=== PATIENT | female | born 1930 | race Caucasian/White ===

== ENCOUNTER 2017-10-14 18:36 | Emergency (ER) | payer MEDICARE ==
--- NOTE | 2017-10-14 21:13 | RAD ---
TWO VIEWS RIGHT HUMERUS: 10/14/17 HISTORY: Pain. COMPARISON: None. FINDINGS: There is mild bone demineralization. No fracture. No cortical irregularity or periosteal reaction. IMPRESSION: Unremarkable two views right humerus. POS: [facility]
== END 2017-10-14 21:35 | disposition home or self-care (01) ==
LOC: ERS 18:36
DX: M79.601 Pain in right arm (principal); I13.0 Hypertensive heart and chronic kidney disease with heart failure and stage 1 through stage 4 chronic kidney disease, or unspecified chronic kidney disease; N18.3 Chronic kidney disease, stage 3 (moderate); I50.9 Heart failure, unspecified

== ENCOUNTER 2017-10-31 23:12 | Inpatient (IN) | payer MEDICARE ==
[2017-11-01] MEDS ORDERED: Ondansetron HCl/PF 4 MG/2 ML Vial ONE ×2 (00:04→00:43)
[2017-11-01] MEDS ORDERED: hydrALAZINE 20 MG/ML VIAL ONE ×2 (00:43→04:15)
[2017-11-01 01:04] LABS: Hemoglobin 14.3 g/dL (12.0-16.0); Mean Corpuscular HGB CONC 33.5 g/dL (32.0-36.0); Mean Corpuscular Hemoglobin 32.7 pg (27.0-31.0); Mean Corpuscular Volume 97.5 fL (78.0-98.0); Mean Platelet Volume 6.4 fL (7.4-10.4); Platelet Count 242 thou/uL (130-400); RBC Distribution Width 13.7 % (11.5-14.5); Red Blood Cell (RBC) Count 4.37 mill/uL (4.20-5.40); White Blood Cell (WBC) Count 19.9 thou/uL (4.8-10.8)
[2017-11-01 01:07] LABS: INR-International Normal Ratio 3.8; PTT 43.6 SEC (22.9-36.1); Prothrombin Time 37.5 SEC (12.0-14.7)
[2017-11-01 01:16] LABS: ALT (SGPT) 23 U/L (8-55); AST (SGOT) 30 U/L (5-34); Albumin 4.3 g/dL (3.4-4.8); Alkaline Phosphatase 69 U/L (40-150); Anion Gap 12 mmol/L (10-20); BUN (Urea Nitrogen) 21 mg/dL (9.8-20.1); Bilirubin, Total 0.6 mg/dL (0.2-1.2); Calc. Creatinine Clearance 0 mL/min (70-130); Calcium 9.1 mg/dL (7.8-10.44); Carbon Dioxide 25 mmol/L (23-31); Chloride 95 mmol/L (98-107); Estimated GFR-MDRD 44; Globulin 1.9 g/dL (2.4-3.5); Glucose 109 mg/dL (83-110); Potassium 4.4 mmol/L (3.5-5.1); Protein, Total 6.2 g/dL (6.0-8.3); Sodium 128 mmol/L (136-145)
[2017-11-01 01:25] LABS: Lymphocytes 25 % (21-51); MDiff Complete? YES; Monocytes 4 % (0-10); Neutrophil 71 % (42-75); PLT Morphology Comment Appears Adequate; RBC Morphology Normal
[2017-11-01] MEDS ORDERED: Phytonadione 10 MG/ML AMP SLOW IVP SCH (02:15)
[2017-11-01 05:09] VITALS: BMI 22.7
[2017-11-01] MEDS ORDERED: HYDROcodone/Acetaminophen 5/325 mg Tablet PO PRN ×2 (05:12)
[2017-11-01] MEDS ORDERED: Ondansetron HCl/PF 4 MG/2 ML Vial IVP PRN ×2 (05:12→07:37)
[2017-11-01] MEDS ORDERED: Acetaminophen 325 MG TAB PO PRN (05:12)
[2017-11-01] MEDS ORDERED: Ondansetron ODT 4 MG TAB SL PRN (05:12)
[2017-11-01] MEDS ORDERED: Dextrose 50% Abboject 50 ML SYRINGE SLOW IVP PRN (07:37)
[2017-11-01] MEDS ORDERED: Dextrose 5% in Water 1,000 ML IV PRN (07:37)
[2017-11-01] MEDS ORDERED: Ondansetron ODT 4 MG TAB PO PRN (07:37)
[2017-11-01] MEDS ORDERED: Sodium Chloride 0.9% 1,000 ML IV SCH ×2 (07:37→10:45)
--- NOTE | 2017-11-01 08:50 | RAD ---
PORTABLE RIGHT KNEE 2 VIEWS: HISTORY: Fall, right knee pain. FINDINGS: Degenerative changes are present. Bones are osteopenic. No acute fracture or dislocation is identif ied. POS: [facility]
--- NOTE | 2017-11-01 09:39 | RAD ---
RIGHT HIP 2 VIEWS: HISTORY: Fall, right hip pain. FINDINGS: There is a subcapital fracture involving the neck of the right femur with foreshortening. POS: [facility]
--- NOTE | 2017-11-01 09:58 | RAD ---
PORTABLE CHEST 1 VIEW: DATE: 10/31/17. TIME: 11:21 p.m. HISTORY: Fall, right hip fracture. FINDINGS: Comparison is made with the exam of 10/14/16. The heart size is enlarged. The aorta is tortuous. There is a left-side pacing device. The lungs a re well expanded without lobar consolidation, pneumothoraces, guerline pulmonary edema, or pleural effus ions. IMPRESSION: No acute process. POS: [facility]
[2017-11-01] MEDS: Famotidine 20 MG TAB PO SCH (10:04)
--- NOTE | 2017-11-01 10:41 | RAD ---
RIGHT HAND 2 VIEWS: HISTORY: Fall, right hand laceration and pain. FINDINGS: Bones are osteopenic. Degenerative changes are present. No acute fracture or dislocation is identif ied. No radiopaque foreign bodies are seen. POS: [facility]
[2017-11-01] MEDS: hydrALAZINE 20 MG/ML VIAL SLOW IVP PRN ×2 (10:44→21:05)
--- NOTE | 2017-11-01 11:42 | HP ---
DATE OF ADMISSION: 11/01/2017 HISTORY OF PRESENT ILLNESS: She is an 87-year-old woman who is in poor physical condition who fell i n the bathroom, suffering a fracture of her right femoral neck. Family tells me she really has stopp ed walking in recent weeks and walks essentially none without help of a walker or another person. PHYSICAL EXAMINATION: EXTREMITIES: She has a shortened external rotation of her right leg. She has intact DP and PT pulse s. She has intact sensation in her foot. She has severe pain with any manipulation of the right hip . Skin is intact over the right hip. Radiographs, which are confusing because they can only be viewed in Radiology at this time. For some reason, the image is not loading on [facility] throughout the hospital, but radiographs viewed in the [facility] department showed that she has a completely displaced femoral neck fracture with shortening. LABORATORY DATA: Significant for an INR of 3.8. ASSESSMENT: Femoral neck fracture on a fully anticoagulated patient who is essentially a nonambulato r. PLAN: Plan at this time is as follows. I asked the ER to give her vitamin K last night. We will or liliana PT/INR in the morning. This should give her 24 hours for reversal. I have explained to the cristina ly that surgery could not be performed until trauma team has cleared her medically and INR is reverse d down to at least 1.7.
[2017-11-01 12:31] LABS: Hemoglobin 15.3 g/dL (12.0-16.0); INR-International Normal Ratio 1.4; Mean Corpuscular HGB CONC 34.2 g/dL (32.0-36.0); Mean Corpuscular Hemoglobin 33.1 pg (27.0-31.0); Mean Corpuscular Volume 96.8 fL (78.0-98.0); Mean Platelet Volume 6.4 fL (7.4-10.4); PTT 30.5 SEC (22.9-36.1); Platelet Count 253 thou/uL (130-400); Prothrombin Time 16.8 SEC (12.0-14.7); RBC Distribution Width 13.8 % (11.5-14.5); Red Blood Cell (RBC) Count 4.61 mill/uL (4.20-5.40); White Blood Cell (WBC) Count 22.7 thou/uL (4.8-10.8)
[2017-11-01] MEDS: Acetaminophen 1,000 MG in Premix Bag 1 BAG IVPB SCH ×2 (12:35→18:06)
[2017-11-01 13:03] LABS: Lymphocytes 21 % (21-51); MDiff Complete? YES; Monocytes 2 % (0-10); Neutrophil 56 % (42-75); PLT Morphology Comment Appears Adequate; Polychromasia SLIGHT = 2-3 cells (100X) (0-2/hpf); Reactive Lymphocytes 19 % (0-10)
--- NOTE | 2017-11-01 14:52 | HP ---
DATE OF ADMISSION: 11/01/2017 REQUESTING PHYSICIAN: Dr. Bernabe. ATTENDING SURGEON: Dr. Gardiner. CONSULTATIONS: Orthopedics, Dr. Manning. HISTORY OF PRESENT ILLNESS: The patient is an 87-year-old woman, who was reportedly attemp ting to use the bathroom at the assisted when she fell. The patient was brought by chio brice to the emergency department where she underwent evaluation and examination and was noted to have a right hip fracture, at which time we were asked to evaluate the patient for admission and obtain or thopedic consultation. Of note, the patient is on warfarin for atrial fibrillation. Patient also potter s significant Alzheimer's dementia and is a very poor historian. Her elderly is also here, w ho attempts to provide most of the history, but the fall at the assisted is unclear at best. ALLERGIES: The patient has multiple allergies listed, we cannot confirm what reaction she has. The medications are listed as ASPIRIN, CEPHALEXIN, ERYTHROMYCIN, HYDROXYCHLOROQUINE SULFATE, MOEXIPRIL, P ENICILLIN, PLAQUENIL, SULFA, TETANUS. CURRENT MEDICATIONS: Acetaminophen, calcium with vitamin D, Claritin, clonidine, Coreg, Coumadin, gu aifenesin, Imodium, Integra, isosorbide mononitrate, Lasix, losartan, Lyrica, melatonin, milk of magn esia, nitroglycerin, prednisolone, senna, sertraline, spironolactone, Tessalon, Theragran M, tramadol , Tums, Tylenol with Codeine #4, Valium, Voltaren, and Zofran. PAST MEDICAL HISTORY: TIA; chronic kidney disease, stage 3; hypertension; CLL; giant cell arteritis. 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 PAST SURGICAL HISTORY: Left hip replacement, colon resection, right eye surgery x7, pacemaker placem ent. SOCIAL HISTORY: The patient currently resides in [facility]. Denies history of alcohol, castillo g, or tobacco use. FAMILY HISTORY: Unknown. REVIEW OF SYSTEMS: Ten-point review of systems is negative, unless otherwise as stated. PHYSICAL EXAMINATION: VITAL SIGNS: Blood pressure 155/92, heart rate 80, respirations 12, oxygen saturation 96% on room ai r, temperature is 98.6. GENERAL: The patient is resting comfortably in a surgical floor bed. She is awake. She is oriented to person only. Her at bedside says this is her baseline. The patient is somewhat able to be oriented to time and location, but does not have good recall at all. The patient will follow simp le commands and is appropriate. HEENT: Head is normocephalic. Eyes are PERRLA on the left consistent with her blindness history on the right. Ears are atraumatic without discharge. Nose atraumatic with discharge. Oropharynx is cl ear. NECK: Nontender. Trachea is midline. No JVD. CHEST: Clear to auscultation with moderate inspiratory and expiratory effort secondary to patient fo llowing commands. HEART: Irregularly irregular with a normal rate consistent with her atrial fibrillation. ABDOMEN: Soft, flat, nontender. Pelvis is stable. MUSCULOSKELETAL: The patient is tender to palpation to the right hip. Shows some angulation holding her hip. She is neurovascularly intact distally and in all 4 extremities by report. Back is nonten liliana and atraumatic. LABORATORY FINDINGS: White blood cell count 19.9, hemoglobin 14.3, hematocrit 42.6, platelets 242. Sodium 128, potassium 4.4, chloride 95, CO2 of 25, BUN 21, creatinine 1.16, glucose 109. LFTs are un remarkable. PTT 44. PT 38. INR 3.8. RADIOGRAPHIC FINDINGS: AP chest shows no acute process. Right knee shows no fracture or dislocation . Right hip shows there is a subcapital fracture involving the neck of the right femur with shorteni ng. Radiographs of the right hand show no fracture or dislocation. ASSESSMENT AND PLAN: 1. Status post fall. 2. Warfarin-induced coagulopathy. 3. Right femoral neck fracture. 4. Multiple comorbidities. Plan will be to admit the patient to the surgical floor after consultation with Orthopedics. We will administer vitamin K to reverse the warfarin. Repeat coags later today and make patient n.p.o. afte r midnight and plan for surgical intervention tomorrow. The evaluation, examination, laboratory and radiographic findings were discussed with Dr. Gardiner at the time of dictation.
[2017-11-01] MEDS ORDERED: Clindamycin/D5W 900 MG in Premix Bag 1 BAG IVPB SCH (17:30)
[2017-11-01] MEDS: Carvedilol 3.125 MG TAB PO SCH (18:06)
[2017-11-01 19:37] LABS: CKMB 3.5 ng/mL (0-6.6)
[2017-11-01] MEDS: Diazepam 2 MG TAB PO SCH (20:51)
[2017-11-01] MEDS: Pregabalin 25 MG CAP PO SCH (20:52)
[2017-11-01] MEDS: Losartan 25 MG TAB PO SCH (20:52)
[2017-11-01] MEDS ORDERED: Phytonadione 10 MG/ML AMP PO SCH (21:00)
[2017-11-02] MEDS: Acetaminophen 1,000 MG in Premix Bag 1 BAG IVPB SCH ×3 (01:21→12:25)
[2017-11-02 01:31] LABS: CKMB 3.4 ng/mL (0-6.6); Troponin I 0.046 ng/mL (< 0.028)
[2017-11-02 01:32] LABS: Band 3 % (5-11); Hemoglobin 14.5 g/dL (12.0-16.0); Lymphocytes 34 % (21-51); MDiff Complete? YES; Mean Corpuscular HGB CONC 33.1 g/dL (32.0-36.0); Mean Corpuscular Hemoglobin 32.5 pg (27.0-31.0); Mean Corpuscular Volume 98.2 fL (78.0-98.0); Mean Platelet Volume 6.9 fL (7.4-10.4); Monocytes 2 % (0-10); Neutrophil 61 % (42-75); PLT Morphology Comment Appears Adequate; Platelet Count 201 thou/uL (130-400); RBC Distribution Width 13.8 % (11.5-14.5); Red Blood Cell (RBC) Count 4.47 mill/uL (4.20-5.40); White Blood Cell (WBC) Count 20.4 thou/uL (4.8-10.8)
[2017-11-02 01:57] LABS: Anion Gap 15 mmol/L (10-20); BUN (Urea Nitrogen) 16 mg/dL (9.8-20.1); Calc. Creatinine Clearance 45 mL/min (70-130); Calcium 8.8 mg/dL (7.8-10.44); Carbon Dioxide 22 mmol/L (23-31); Chloride 97 mmol/L (98-107); Estimated GFR-MDRD 64; Glucose 98 mg/dL (83-110); Potassium 3.8 mmol/L (3.5-5.1); Sodium 130 mmol/L (136-145)
[2017-11-02] MEDS: hydrALAZINE 20 MG/ML VIAL SLOW IVP PRN ×2 (03:44→16:17)
[2017-11-02] MEDS: Carvedilol 3.125 MG TAB PO SCH ×2 (05:23→16:18)
[2017-11-02 07:34] LABS: Troponin I 0.039 ng/mL (< 0.028)
[2017-11-02 07:47] LABS: INR-International Normal Ratio 1.3; PTT 33.9 SEC (22.9-36.1)
[2017-11-02] MEDS: cloNIDine 0.1 MG TAB PO SCH (08:02)
[2017-11-02] MEDS: Famotidine 20 MG TAB PO SCH (08:03)
[2017-11-02] MEDS: Furosemide 20 MG TAB PO SCH (08:03)
[2017-11-02] MEDS: Losartan 25 MG TAB PO SCH ×2 (08:04→21:20)
[2017-11-02] MEDS: Pregabalin 25 MG CAP PO SCH ×2 (08:04→21:20)
[2017-11-02] MEDS: predniSONE 5 MG TAB PO SCH (08:04)
[2017-11-02] MEDS ORDERED: traMADol HCl 50 MG TAB PO PRN (09:23)
[2017-11-02] MEDS ORDERED: Clindamycin/D5W 900 mg/50 ml Premix Bag ONE (10:48)
[2017-11-02] MEDS ORDERED: Fentanyl 100 MCG/2 ML VIAL ONE ×2 (11:03→13:31)
[2017-11-02] MEDS ORDERED: PHENYLEPHRINE-NS 100 MCG/ML 10 ML SYRINGE ONE ×2 (11:40→12:07)
[2017-11-02] MEDS ORDERED: PROPOFOL 200 MG/20 ML VIAL ONE (12:07)
[2017-11-02] MEDS ORDERED: Succinylcholine Chloride 20 MG/ML 10 ml SYRINGE FS ONE (12:07)
[2017-11-02] MEDS ORDERED: Lidocaine 1% PF 5 ML VIAL ONE (12:07)
[2017-11-02] MEDS ORDERED: Ondansetron HCl/PF 4 MG/2 ML Vial ONE (12:07)
[2017-11-02] MEDS ORDERED: Promethazine HCl 25 MG/ML VIAL IM PRN (12:53)
[2017-11-02] MEDS ORDERED: Ondansetron HCl/PF 4 MG/2 ML Vial IVP PRN (12:53)
[2017-11-02] MEDS ORDERED: Promethazine HCl 25 MG/ML VIAL SLOW IVP PRN (12:53)
--- NOTE | 2017-11-02 13:32 | OP ---
DATE OF PROCEDURE: 11/02/2017 PREOPERATIVE DIAGNOSIS: Right femoral neck fracture. POSTOPERATIVE DIAGNOSIS: Right femoral neck fracture. SURGEON: Shane Manning M.D. HARNESS PULLER: Patricia Meza PA-C BLOOD LOSS: 200 mL. SPECIMEN: None. DRAINS: None. COMPLICATIONS: None. IMPLANTS: Meliton implants were used, Accolade hip fracture stem size 4.5, -4 neck and a 47 mm head. PROCEDURE IN DETAIL: After informed consent was obtained in the preoperative holding area, the patie nt was taken to the operative suite where general anesthesia was induced. The patient was then posit ioned in the lateral decubitus position. The hip was then prepped and draped in usual sterile fashio n. The patient received preoperative antibiotics. Prior to incision, time-out was called and all me mbers of the surgical team agreed upon site, surgeon, and patient. After this, a longitudinal incisi on was made directly over the trochanter, noted by palpation extending 2 fingerbreadths above and bel ow the trochanter. The deeper subcutaneous layer was undermined with Bovie electrocautery. The ilio tibial band was encountered and incised sharply and the plane below this was developed bluntly. A arnley retractor was placed to hold this opened. The lateral aspect of the trochanter and the abduct or muscles were encountered and then reflected anteriorly off the trochanter using Bovie electrocaute ry. Once this was completed, the anterior capsule was then encountered and identified and copious ca psulotomy was carried out, exposing the femoral neck and head. Dislocation maneuver was then performe d and an in situ provisional neck cut was then made using the oscillating saw. Attention was then tu rned to acetabular preparation and sequential reaming was carried out up to the appropriate diameter and a trial was then malleted into place with good firm resistance and no pullout. The permanent pal tabular shell was then malleted squarely into place, as was the appropriate liner. Once completed, t he wound was copiously irrigated and attention was then turned to femoral preparation. Flexion and ex ternal rotation was performed of the exposed thigh and femoral elevators were then placed at the prox imal aspect of the wound. Canal finder was used to establish the length of the canal and sequential reaming was carried out, followed by broaching. Once the appropriate stability was established with the trial broaches with both flexion, extension and rotational stability, we did trial with neutral a nd 2 mm offset incremental necks. Once the appropriate size was decided upon, with good stability no dario with flexion, extension, internal and external rotation and shuck being negative, we removed the femoral trial broach and malletted into place the permanent prosthesis with good firm fit, which was also stable to rotation. Again, the hip felt very stable to flexion, extension, internal and externa l rotation. Leg lengths appeared near anatomic clinically and we were quite happy with prosthesis pl acement. Copious irrigation was then carried out through the entirety of the wound. Primary closure of the abductors was accomplished with interrupted #2 Vicryl [id number] stitches and the IT ban d was then closed with interrupted #2 Vicryl, oversewn with a #2 running barbed Quill stitch. Subcut aneous fascia was closed with running barbed Quill stitch and a subcuticular Monocryl barbed Quill st itch was used for skin closure and augmented with skin cement. A sterile dressing was applied. The p rocedure was terminated without any complication. All counts were correct. The patient was awakened in the operative suite and taken to the recovery room in stable condition.
--- NOTE | 2017-11-02 15:27 | RAD ---
RADIOGRAPH RIGHT HIP TWO VIEWS: 11/02/2017 1:29 p.m. HISTORY: An 87-year-old female, status post surgery and right hip fracture. COMPARISON: 10/31/2017 FINDINGS: The femoral head and neck have been resected and replaced with a metallic prosthesis, with a stem aline t reaches the proximal femoral diaphysis. Positioning is satisfactory. IMPRESSION: Status post right hip replacement arthroplasty. POS: [facility]
--- NOTE | 2017-11-02 15:28 | PRG-2 ---
DATE OF SERVICE: 11/02/2017 SUBJECTIVE: The patient is resting well in bed this morning, sleepy. No events overnight. Pain has been controlled. The patient is awaiting surgery this morning. OBJECTIVE: VITAL SIGNS: Temperature 98.4, 81, 16, 97% on room air, blood pressure 182/84. GENERAL: An 87-year-old female, resting comfortably in bed, sleeping. HEENT: Normocephalic, atraumatic. CHEST: Clear to auscultation, no increased work of breathing. HEART: Regular rate and rhythm, no murmur. ABDOMEN: Soft, nontender, nondistended. MUSCULOSKELETAL: Right hip tenderness. Neurovascularly intact in all extremities. LABORATORY DATA: White blood cell 20.4, hemoglobin 14.5, hematocrit 43.9, platelets 201. PT 16, INR 1.3, PTT 33.9. Sodium 130, potassium 3.8, chloride 97, carbon dioxide 22, BUN 16, creatinine 0.84. Troponins were 0.07, 0.046, 0.039. CK-MB 3.5, 3.4, 3.0. ASSESSMENT: 1. Status post fall. 2. Right femoral neck fracture. 3. Warfarin induced coagulopathy with history of atrial fibrillation. 4. Acute kidney injury, resolved. PLAN: Plan for orthopedic surgery today on right hip. We will evaluate for adequate pain control postop. Considering elevated blood pressure we will continue all home medications and we will continue to monitor. Tomorrow will restart anticoagulation with warfarin and heparin bridge. The patient was seen and examined with Dr. Gardiner who is in agreement with the plan as noted above. [facility]
[2017-11-02] MEDS ORDERED: HYDROcodone/Acetaminophen 5/325 mg Tablet PO PRN (18:28)
[2017-11-02] MEDS: Clindamycin/D5W 900 MG in Premix Bag 1 BAG IVPB SCH (18:29)
[2017-11-02] MEDS: Ibuprofen 800 MG TAB PO SCH (18:51)
[2017-11-02] MEDS: Acetaminophen 500 MG TAB PO SCH ×2 (18:52→21:21)
[2017-11-02] MEDS: Diazepam 2 MG TAB PO SCH (21:20)
[2017-11-03] MEDS: Ibuprofen 800 MG TAB PO SCH (01:44)
[2017-11-03] MEDS: Acetaminophen 325 MG TAB PO SCH ×5 (01:44→21:17)
[2017-11-03] MEDS: Clindamycin/D5W 900 MG in Premix Bag 1 BAG IVPB SCH (01:45)
[2017-11-03] MEDS: hydrALAZINE 20 MG/ML VIAL SLOW IVP PRN (01:45)
[2017-11-03 06:32] LABS: #Basophils 0.1 thou/uL (0.0-0.2); #Eosinphils 0.1 thou/uL (0.0-0.7); #Lymphocytes 5.5 thou/uL (1.20-3.40); #Monocytes 0.7 thou/uL (0.11-0.59); #Neutrophils 10.6 thou/uL (1.40-6.50); %Basophils 0.8 % (0.0-1.0); %Eosinophils 0.3 % (0.0-10.0); %Lymphocytes 32.5 % (21.0-51.0); %Monocytes 4.1 % (0.0-10.0); %Neutrophils 62.3 % (42.0-75.0); Hemoglobin 13.5 g/dL (12.0-16.0); Mean Corpuscular HGB CONC 32.7 g/dL (32.0-36.0); Mean Corpuscular Hemoglobin 32.3 pg (27.0-31.0); Mean Corpuscular Volume 98.9 fL (78.0-98.0); Platelet Count 196 thou/uL (130-400); Red Blood Cell (RBC) Count 4.17 mill/uL (4.20-5.40); White Blood Cell (WBC) Count 17.1 thou/uL (4.8-10.8)
[2017-11-03 06:38] LABS: Anion Gap 13 mmol/L (10-20); BUN (Urea Nitrogen) 28 mg/dL (9.8-20.1); Calc. Creatinine Clearance 27 mL/min (70-130); Calcium 8.4 mg/dL (7.8-10.44); Carbon Dioxide 23 mmol/L (23-31); Chloride 97 mmol/L (98-107); Estimated GFR-MDRD 36; Glucose 108 mg/dL (83-110); Magnesium 1.9 mg/dL (1.6-2.6); Phosphorus 3.5 mg/dL (2.3-4.7); Potassium 4.3 mmol/L (3.5-5.1); Sodium 129 mmol/L (136-145)
--- NOTE | 2017-11-03 06:47 | EKG ---
Test Reason : STAT Blood Pressure : / mmHG Vent. Rate : 080 BPM Atrial Rate : 079 BPM P-R Int : 000 ms QRS Dur : 116 ms QT Int : 334 ms P-R-T Axes : -27 177 125 degrees QTc Int : 385 ms Ventricular-paced rhythm Abnormal ECG When compared with ECG of 16-OCT-2016 08:16, No significant change was found Confirmed by LEONARDO CAMACHO ([id number]) on 11/03/2017 6:46:09 AM Referred By: Confirmed By:LEONARDO CAMACHO
[2017-11-03] MEDS: Losartan 25 MG TAB PO SCH (08:37)
[2017-11-03] MEDS: Furosemide 20 MG TAB PO SCH (08:37)
[2017-11-03] MEDS: predniSONE 5 MG TAB PO SCH (08:37)
[2017-11-03] MEDS: Famotidine 20 MG TAB PO SCH (08:37)
[2017-11-03] MEDS: Carvedilol 3.125 MG TAB PO SCH ×2 (08:37→18:37)
[2017-11-03] MEDS: cloNIDine 0.1 MG TAB PO SCH (08:38)
[2017-11-03] MEDS: Spironolactone 25 MG TAB PO SCH (08:58)
[2017-11-03] MEDS: Pregabalin 25 MG CAP PO SCH ×2 (08:58→21:15)
[2017-11-03] MEDS ORDERED: Refresh (Polyvinyl Alcohol 1.4%/Povidone 0.6%) Opth Drops EA EYE PRN (09:59)
[2017-11-03] MEDS ORDERED: Sodium Chloride 0.9% 500 ML IV SCH (11:30)
[2017-11-03] MEDS ORDERED: Hydrocortisone Sod Succ/PF 100 mg/2 ml Vial IVP SCH ×2 (13:00)
[2017-11-03] MEDS: Sodium Chloride 0.9% 1,000 ML IV SCH (15:30)
--- NOTE | 2017-11-03 15:38 | PRG-2 ---
DATE OF SERVICE: 11/03/2017 TRAUMA SURGERY NOTE SUBJECTIVE: The patient is an 87-year-old female postop day #1 status post right hip arthroplasty. No acute events overnight. The patient denies pain and says that has been well controlled. She requests eyedrops for her dry eyes. Family reports that she has been sleepy. OBJECTIVE: VITAL SIGNS: Temperature 97.3, pulse 79, respirations 16, O2 sat 93% on room air, blood pressure 161/76. PHYSICAL EXAM: General: well developed female resting in bed HEENT: normocephalic, atraumatic Lungs: CTAB, no increased work of breathing Heart: RRR, no murmur Extremities: Bandage over right hip clean dry and intact. Neurovascularly intact x4. LABORATORY DATA: White blood cells 17.1, hemoglobin 13.5, hematocrit 41.2, platelets 196,000. Sodium 129, potassium 4.3, chloride 97, carbon dioxide 23, BUN 28, creatinine 1.4, glucose 108, phosphorus 3.5, magnesium 1.9. ASSESSMENT: 1. Status post fall with right femoral neck fracture. 2. Postop day #1 status post right hip arthroplasty. 3. Warfarin-induced coagulopathy, resolved. 4. History of atrial fibrillation. 5. Acute kidney injury. PLAN: The patient will be restarted on her home dose of warfarin with a heparin bridge today. Refresh eye drops were ordered. Continue bowel regimen and Cristina. We will plan to discontinue Cristina tomorrow pending improvement of her acute kidney injury. The patient's creatinine was 1.4 today. Nephrotoxic medications were discontinued. Considering inadequate urine output over the past 24 hours, the patient was given a 500 mL bolus. We will continue to monitor I's and O's. Wound care consulted for rash on her left bottom, which family says is due to being in bed. Hyponatremia is stable. After rounds, we were called due to family's concern with the patient's sleepiness level. Nursing reported hypotension with systolic in the 80s, diastolic 50s. Considering the patient's chronic prednisone 5 mg daily use with concern for adrenal insufficiency, the patient was given hydrocortisone. The patient was also given albumin. We will continue to monitor the patient's blood pressure, urine output and mental status. Dr. Gardiner saw and examined the patient and formulated the plan as noted above. [facility]
[2017-11-03] MEDS ORDERED: Warfarin Sodium 5 MG TAB PO SCH (17:00)
[2017-11-03] MEDS: Hydrocortisone Sod Succ/PF 100 mg/2 ml Vial IVP SCH (18:38)
[2017-11-03] MEDS: Diazepam 2 MG TAB PO SCH (21:14)
[2017-11-03] MEDS: Senokot 8.6 MG TAB PO SCH (21:15)
[2017-11-03] MEDS: Heparin 5,000 UNITS/ML VIAL SC SCH (21:18)
[2017-11-04] MEDS: Hydrocortisone Sod Succ/PF 100 mg/2 ml Vial IVP SCH ×2 (00:58→05:18)
[2017-11-04] MEDS: Acetaminophen 325 MG TAB PO SCH ×4 (01:00→12:08)
[2017-11-04] MEDS: Sodium Chloride 0.9% 1,000 ML IV SCH ×2 (01:11→08:50)
[2017-11-04 06:41] LABS: Anion Gap 12 mmol/L (10-20); BUN (Urea Nitrogen) 24 mg/dL (9.8-20.1); Calc. Creatinine Clearance 38 mL/min (70-130); Calcium 7.8 mg/dL (7.8-10.44); Carbon Dioxide 21 mmol/L (23-31); Chloride 100 mmol/L (98-107); Estimated GFR-MDRD 53; Glucose 121 mg/dL (83-110); Sodium 129 mmol/L (136-145)
[2017-11-04] MEDS: Senokot 8.6 MG TAB PO SCH (08:41)
[2017-11-04] MEDS: Carvedilol 3.125 MG TAB PO SCH (08:44)
[2017-11-04] MEDS: Furosemide 20 MG TAB PO SCH (08:44)
[2017-11-04] MEDS: Famotidine 20 MG TAB PO SCH (08:44)
[2017-11-04] MEDS: predniSONE 5 MG TAB PO SCH (08:44)
[2017-11-04] MEDS: Heparin 5,000 UNITS/ML VIAL SC SCH (08:50)
[2017-11-04 09:00] LABS: #Basophils 0.1 thou/uL (0.0-0.2); #Lymphocytes 4.5 thou/uL (1.20-3.40); #Monocytes 0.5 thou/uL (0.11-0.59); #Neutrophils 10.1 thou/uL (1.40-6.50); %Basophils 0.8 % (0.0-1.0); %Lymphocytes 29.4 % (21.0-51.0); %Monocytes 3.5 % (0.0-10.0); %Neutrophils 66.3 % (42.0-75.0); Hemoglobin 11.8 g/dL (12.0-16.0); MDiff Complete? YES; Mean Corpuscular HGB CONC 32.9 g/dL (32.0-36.0); Mean Corpuscular Hemoglobin 32.5 pg (27.0-31.0); Mean Corpuscular Volume 98.7 fL (78.0-98.0); Mean Platelet Volume 7.4 fL (7.4-10.4); PLT Morphology Comment Appears Adequate; Platelet Count 176 thou/uL (130-400); RBC Distribution Width 13.9 % (11.5-14.5); Red Blood Cell (RBC) Count 3.63 mill/uL (4.20-5.40); White Blood Cell (WBC) Count 15.3 thou/uL (4.8-10.8)
[2017-11-04] MEDS ORDERED: Polyethylene Glycol 3350 17 GM Packet PO SCH (09:00)
[2017-11-04] MEDS: Spironolactone 25 MG TAB PO SCH (10:16)
[2017-11-04] MEDS: Pregabalin 25 MG CAP PO SCH (10:22)
[2017-11-04] MEDS ORDERED: traMADol HCl 50 MG TAB PO PRN (11:10)
[2017-11-04] MEDS ORDERED: Bisacodyl 10 MG SUPP PR SCH (11:30)
[2017-11-04 15:51] VITALS: TEMP 97.2
[2017-11-04 16:05] VITALS: BP 147/74
== END 2017-11-04 17:14 | DRG 470 ==
LOC: ERS 23:12 → SURG A 11-01 03:52 → 3SE 11-02 13:46 → SURG A 11-02 13:53
PROVIDERS: ADMIT Surgery; ATTEND Surgery
PROC: 0SRB0JZ Replacement of Left Hip Joint with Synthetic Substitute, Open Approach (ICD-10-PCS; principal; 2017-11-02)
DX: S72.92XA Unspecified fracture of left femur, initial encounter for closed fracture (principal); N17.9 Acute kidney failure, unspecified; I13.0 Hypertensive heart and chronic kidney disease with heart failure and stage 1 through stage 4 chronic kidney disease, or unspecified chronic kidney disease; N18.3 Chronic kidney disease, stage 3 (moderate); I48.91 Unspecified atrial fibrillation; I50.9 Heart failure, unspecified; F41.9 Anxiety disorder, unspecified; F32.9 Major depressive disorder, single episode, unspecified; W19.XXXA Unspecified fall, initial encounter; Y92.121 Bathroom in nursing home as the place of occurrence of the external cause; Z85.72 Personal history of non-Hodgkin lymphomas; Z96.642 Presence of left artificial hip joint; Z90.49 Acquired absence of other specified parts of digestive tract; T45.515A Adverse effect of anticoagulants, initial encounter
CPT/HCPCS: 36415; 71045; 80048; 80053; 82553; 83735; 83930; 83935; 84100; 84484; 85025; 85610; 85730; 93005; 93010; 96374; 96375; 96376; G8978-GP-CM; G8979-GP-CL; G8987-GO-CM; G8988-GO-CK; J0131; J0360; J1644; J1720; J2001; J2270; J2405; J2704; J3010; J3430; J3490; P9045

== ENCOUNTER 2018-02-22 13:01 | Observation (INO) | payer MEDICARE ==
[2018-02-22 14:05] LABS: Hemoglobin 13.6 g/dL (12.0-16.0); Mean Corpuscular HGB CONC 32.2 g/dL (32.0-36.0); Mean Corpuscular Hemoglobin 31.2 pg (27.0-31.0); Mean Corpuscular Volume 96.8 fL (78.0-98.0); Mean Platelet Volume 6.9 fL (7.4-10.4); Platelet Count 274 thou/uL (130-400); RBC Distribution Width 12.5 % (11.5-14.5); Red Blood Cell (RBC) Count 4.36 mill/uL (4.20-5.40); White Blood Cell (WBC) Count 18.3 thou/uL (4.8-10.8)
--- NOTE | 2018-02-22 14:12 | CT ---
CT BRAIN WITHOUT CONTRAST: Comparison: 04-22-16 History: Right sided facial pain, dizziness for three days. Technique: Multiple contiguous axial images were obtained in a CT of the brain without contrast. FINDINGS: There are extensive hypodensities in the subcortical and periventricular white matter, likely seconda ry to small vessel ischemic disease. No large infarction is seen. There is no evidence of hydrocephal us, intracranial hemorrhage, or extraarticular fluid collection. The calvarium and overlying soft tissues are unremarkable. The visualized paranasal sinuses and masto id air cells are well aerated. IMPRESSION: No evidence of acute intracranial abnormality. POS: [facility]
[2018-02-22 14:25] LABS: CKMB 1.4 ng/mL (0-6.6); Troponin I Less than 0.010 ng/mL (< 0.028)
[2018-02-22 14:28] LABS: ALT (SGPT) 16 U/L (8-55); AST (SGOT) 24 U/L (5-34); Albumin 4.1 g/dL (3.4-4.8); Alkaline Phosphatase 68 U/L (40-150); Anion Gap 11 mmol/L (10-20); BUN (Urea Nitrogen) 20 mg/dL (9.8-20.1); Bilirubin, Total 0.4 mg/dL (0.2-1.2); CRP (Inflammatory) 1.91 mg/dL (= or < 0.5); Calc. Creatinine Clearance 0 mL/min (70-130); Calcium 9.5 mg/dL (7.8-10.44); Carbon Dioxide 31 mmol/L (23-31); Chloride 95 mmol/L (98-107); Estimated GFR-MDRD 42; Globulin 1.8 g/dL (2.4-3.5); Glucose 100 mg/dL (83-110); Potassium 4.4 mmol/L (3.5-5.1); Protein, Total 5.9 g/dL (6.0-8.3); Sodium 133 mmol/L (136-145)
[2018-02-22 14:32] LABS: Lymphocytes 7 % (21-51); MDiff Complete? YES; Monocytes 2 % (0-10); Neutrophil 83 % (42-75); PLT Morphology Comment Appears Adequate; RBC Morphology Normal; Reactive Lymphocytes 8 % (0-10)
[2018-02-22 15:31] LABS: Bilirubin Negative (Negative); Blood, Urine Negative (Negative); Clarity CLEAR (Clear); Glucose, Urine (Dipstick) Negative (Negative); Leukocyte Negative (Negative); Nitrite Negative (Negative); Protein, Urine (Dipstick) Negative (Neg-Trace); Specific Gravity, Urine 1.008 (1.002-1.036); Urobilinogen 0.2 mg/dL (0.2-1.0)
[2018-02-22 15:40] LABS: INR-International Normal Ratio 3.2; PTT 40.9 SEC (22.9-36.1); Prothrombin Time 32.8 SEC (12.0-14.7)
--- NOTE | 2018-02-22 15:56 | RAD ---
FRONTAL VIEW CHEST: Comparison: 10-31-17 Indication: Emergency exam. Pain with dizziness. FINDINGS: Lungs are hyperinflated. Left side triple lead cardiac pacing device remains. No new consolidation or effusion. Cardiac silhouette remains prominent. IMPRESSION: Stable chest. POS: [facility]
[2018-02-22] MEDS ORDERED: Labetalol HCl 100 MG/20 ML VIAL SLOW IVP PRN (22:11)
[2018-02-22] MEDS ORDERED: Acetaminophen 325 MG TAB PO PRN (22:11)
[2018-02-22] MEDS ORDERED: Zolpidem Tartrate 5 MG TAB PO PRN (22:11)
[2018-02-22] MEDS ORDERED: Ondansetron ODT 4 MG TAB PO PRN (22:11)
[2018-02-22] MEDS ORDERED: Ondansetron PF 4 MG/2 ML Vial IVP PRN (22:11)
[2018-02-22] MEDS ORDERED: hydrALAZINE 20 MG/ML VIAL SLOW IVP PRN (22:11)
[2018-02-22] MEDS ORDERED: traMADol HCl 50 MG TAB PO PRN (22:23)
[2018-02-22] MEDS ORDERED: Nitroglycerin 0.4 MG TAB (25 Tab Bottle) SL PRN (22:23)
[2018-02-22] MEDS ORDERED: Melatonin 3 MG TAB PO PRN (22:23)
[2018-02-23] MEDS: Sodium Chloride 0.9% 1,000 ML IV SCH ×2 (00:09→15:49)
[2018-02-23 00:40] VITALS: BMI 22.0
[2018-02-23] MEDS ORDERED: Pharmacy to Dose AZTREONAM IVPB PRN (01:08)
[2018-02-23] MEDS ORDERED: Aztreonam 1 GM in Sodium Chloride 0.9% 100 ML IVPB SCH ×2 (01:15→09:00)
[2018-02-23 06:38] LABS: Albumin 3.8 g/dL (3.4-4.8); Anion Gap 12 mmol/L (10-20); BUN (Urea Nitrogen) 21 mg/dL (9.8-20.1); BUN/Creatinine Ratio 20.19; Calc. Creatinine Clearance 38 mL/min (70-130); Calcium 9.4 mg/dL (7.8-10.44); Carbon Dioxide 29 mmol/L (23-31); Cardiac Risk 2.6 (Less than 4.5); Chloride 98 mmol/L (98-107); Cholesterol 192 mg/dl (< 200 Desired); Estimated GFR-MDRD 50; Glucose 81 mg/dL (83-110); HDL Cholesterol 74 mg/dL (>60 Neg Risk); LDL Cholesterol, Calculated 106 mg/dL; Phosphorus 3.9 mg/dL (2.3-4.7); Potassium 4.4 mmol/L (3.5-5.1); Sodium 135 mmol/L (136-145); Triglycerides 59 mg/dL (Less than 150)
[2018-02-23 06:55] LABS: Hemoglobin 14.1 g/dL (12.0-16.0); Lymphocytes 46 % (21-51); MDiff Complete? YES; Mean Corpuscular HGB CONC 30.5 g/dL (32.0-36.0); Mean Corpuscular Hemoglobin 30.2 pg (27.0-31.0); Mean Platelet Volume 7.1 fL (7.4-10.4); Monocytes 3 % (0-10); Neutrophil 51 % (42-75); PLT Morphology Comment Appears Adequate; Platelet Count 247 thou/uL (130-400); RBC Distribution Width 12.4 % (11.5-14.5); RBC Morphology Normal; Red Blood Cell (RBC) Count 4.65 mill/uL (4.20-5.40); White Blood Cell (WBC) Count 20.2 thou/uL (4.8-10.8)
[2018-02-23] MEDS ORDERED: Calcium Carbonate 500 MG ChewTAB PO PRN (07:55)
[2018-02-23] MEDS ORDERED: Loratadine 10 MG TAB PO PRN (07:55)
[2018-02-23] MEDS ORDERED: HYDROcodone/Acetaminophen 5/325 mg Tablet PO PRN (07:55)
[2018-02-23] MEDS ORDERED: Polyvinyl Alcohol 1.4%/Povidone 0.6% Opth Drops EA EYE PRN (07:55)
[2018-02-23] MEDS ORDERED: Carvedilol 3.125 MG TAB PO SCH (08:00)
[2018-02-23] MEDS ORDERED: Spironolactone 25 MG TAB PO SCH (08:00)
[2018-02-23] MEDS ORDERED: Enoxaparin Sodium 30 MG/0.3 ML SYRINGE SC SCH (09:00)
[2018-02-23] MEDS ORDERED: Furosemide 20 MG TAB PO SCH (09:00)
[2018-02-23] MEDS ORDERED: predniSONE 5 MG TAB PO SCH (09:00)
[2018-02-23] MEDS ORDERED: Multivitamin W/ Minerals 1 TAB PO SCH ×2 (09:00)
[2018-02-23] MEDS ORDERED: Pregabalin 25 MG CAP PO SCH ×2 (09:00)
[2018-02-23] MEDS ORDERED: Senokot 8.6 MG TAB PO SCH (09:00)
[2018-02-23] MEDS ORDERED: Famotidine 20 MG TAB PO SCH (09:00)
[2018-02-23] MEDS ORDERED: Famotidine/PF 20 mg/2ml Vial SLOW IVP SCH (09:00)
[2018-02-23 16:01] VITALS: BP 107/58; TEMP 98.1
--- NOTE | 2018-02-23 16:50 | PDOC.PN ---
- Subjective Encounter Start Date: 02/23/18 Encounter Start Time: 09:30 Subjective: examined this morning, new admit overnight for TIA symptoms -: Reports facial pain and dizziness were much better today -: Denies complaints, does not appear to be in any distress - Objective Resuscitation Status - Order Detail: 02/22/18 22:11 Resuscitation Status Routine Resuscitation Status: FULL: Full Resuscitation Vital Signs & Weight: Vital Signs (12 hours) Temp Pulse Pulse Pulse Resp BP BP 02/23/18 16:00 98.1 F 80 16 02/23/18 11:48 98.4 F 81 20 02/23/18 09:28 79 80 180/86 H 160/73 H 02/23/18 08:40 80 79 178/83 H 179/84 H 02/23/18 08:00 98.4 F 80 16 BP Pulse Ox Pulse Ox 02/23/18 16:00 107/58 L 93 L 02/23/18 11:48 146/70 H 96 02/23/18 09:28 97 02/23/18 08:40 02/23/18 08:00 188/88 H 92 L Weight Weight 60.917 kg I&O: 02/22/18 02/23/18 02/24/18 06:59 06:59 06:59 Intake Total 100 1414 Balance 100 1414 Result Diagrams: 02/23/18 05:56 02/23/18 05:56 Phys Exam - Physical Examination HEENT: PERRLA, moist MMs Neck: no nodes Respiratory: no wheezing, clear to auscultation bilateral Cardiovascular: RRR Gastrointestinal: soft, non-tender Musculoskeletal: no edema, pulses present Neurological: non-focal, normal sensation, moves all 4 limbs no warmth or edema noted to face, sensation intact Lymphatic: no nodes Psychiatric: normal affect, A&O x 3 Dx/Plan (1) Congestive heart failure (CHF) Code(s): I50.9 - HEART FAILURE, UNSPECIFIED Status: Chronic (2) TIA (transient ischemic attack) Status: Acute (3) Temporal arteritis Code(s): M31.6 - OTHER GIANT CELL ARTERITIS Status: Chronic (4) CKD (chronic kidney disease) stage 2, GFR 60-89 ml/min Code(s): N18.2 - CHRONIC KIDNEY DISEASE, STAGE 2 (MILD) Status: Chronic (5) Chronic a-fib Code(s): I48.2 - CHRONIC ATRIAL FIBRILLATION Status: Chronic (6) Chronic anticoagulation Code(s): Z79.01 - LONG-TERM (CURRENT) USE OF ANTICOAGULANTS Status: Chronic (7) Chronic atrial fibrillation Code(s): I48.2 - CHRONIC ATRIAL FIBRILLATION Status: Chronic - Plan cont current plan of care, DVT proph w/heparin, DVT proph w/lovenox Echo done today -: Dr. Woodall and Dr. Tena consulted, awaiting recommendations -: MRI cancelled due to pacemaker (not compatible) * .
[2018-02-23] MEDS ORDERED: Warfarin Sodium 5 MG TAB PO SCH (17:00)
[2018-02-23] MEDS ORDERED: Carvedilol 6.25 MG TAB PO SCH (17:00)
--- NOTE | 2018-02-23 20:36 | HP ---
PRIMARY CARE PHYSICIAN: Dr. Mendez. CHIEF COMPLAINT: Dizziness with pain and weakness to the left side of the face, reports dizziness started 3 days ago. HISTORY OF PRESENT ILLNESS: The patient is a resident of the [facility] [place]. The patient reports that the right-sided face pain started just prior to calling EMS and had already to resolve by the time she gotten to the ER, but reports that the dizziness which was constant had been ongoing for the 3 days, it did not matter if she change position. She is currently unable to ambulate after she had a hip fracture this summer. Reports that she gets around the intermediate via wheelchair. She denied any nausea or vomiting with the dizziness. Denied any chest pain or shortness of breath. Denied any lower extremity edema. She was seen and admitted in June of 2016 for similar symptoms of dizziness and at that time she had some hypotension. Today on exam, she denied any current face pain and reports that her dizziness had started to resolve. In the ER, she had a brain CT which showed no evidence of acute intracranial abnormality. She also had a chest x-ray which showed a stable chest film. She does have a history of previous TIAs, chronic kidney disease stage 3, hypertension, chronic lymphocytic leukemia, giant cell arteritis. She is blind in the right eye. She has a history of AFib, CHF, and anemia. She did have a left hip replacement in October. Based on her symptoms and her history, she was admitted to the observation unit for a TIA workup. PAST MEDICAL HISTORY: As above. PAST SURGICAL HISTORY: She had a left hip open reduction and internal fixation, pacemaker placement, and cardiac ablation. She also, in October, had a right open reduction and internal fixation. FAMILY HISTORY: Unknown. SOCIAL HISTORY: She does live at the [facility]. Denies any alcohol or drug abuse. Denies any smoking. REVIEW OF SYSTEMS: The following completed review of systems is negative unless otherwise mentioned in the HPI are below; CONSTITUTIONAL: She denies weight loss or weight gain. Reports other than being dizzy and having a right facial pain yesterday. She is in typical state of health. SKIN: She denied any rash or itching. EYES: She denied any changes to vision. She is blind in the right eye. ENT AND MOUTH: Denies any nose bleedings, neck stiffness, pain or tenderness. She reports some facial pain on the right side, which is currently resolving. CARDIOVASCULAR: Denies any palpitations, dyspnea on exertion, or any chest pain. RESPIRATORY: Denied any shortness of breath, wheezing, or cough. GASTROINTESTINAL: Denied any appetite changes, abdominal pain, nausea, vomiting, or diarrhea. GENITOURINARY: Denied any dysuria, changes in frequency or any urgency. MUSCULOSKELETAL: Denies any pain or swelling. NEUROLOGIC/PSYCHIATRIC: She does have a history of anxiety and depression. PHYSICAL EXAMINATION: VITAL SIGNS: Temperature is 98, pulse is 80, respirations are 18, blood pressure is 190/88, and pulse ox is 97% on room air. GENERAL: The patient is currently alert, awake, does not appear in any distress. HEAD: Normocephalic and atraumatic. EYES: Pupils are round and reactive to light. Extraocular muscles are intact. ENT: Moist mucous membranes. No oral lesions. Mouth exam is normal. NECK: Supple. Range of motion is normal. LUNGS: Clear to auscultation bilaterally. No wheezes or rhonchi. CARDIAC: S1 and S2, irregularly irregular. No murmurs, gallops, or rubs. ABDOMEN: Soft. Bowel sounds are present. Nontender to palpation. BACK: No tenderness. Normal inspection. EXTREMITIES: Passive movements to all joints are normal. Pulses are equal bilaterally to upper and lower extremities. No pedal edema is noted. Sensation and pedal pulses are normal bilaterally. NEUROLOGIC: Nonfocal. Denied any changes to sensation. Denied any weakness to either extremity. The patient is moving all four limbs. SKIN: No rash. HEMATOLOGIC: No lymphedema. PSYCHIATRIC: Normal affect. ASSESSMENT AND PLAN: 1. Transient ischemic attack. CT of the brain was done in the ER. We will attempt MRI of the brain if permittable with her current pacemaker. We will give an echocardiogram. We will consult Neurology. 2. Hypertension. We will continue her home medications. 3. Chronic anticoagulation. We will continue her Coumadin and we will check PT and INR daily. 4. Anxiety and depression. We will continue her home medications. 5. History of giant cell arteritis. We will continue her home medications. 6. We will start deep vein thrombosis prophylaxis and gastrointestinal prophylaxis. 7. Hospital stay will depend on clinical findings. Job ID: [id number]
[2018-02-23] MEDS ORDERED: Diazepam 2 MG TAB PO SCH (21:00)
[2018-02-23] MEDS ORDERED: Atorvastatin Calcium 40 MG TAB PO SCH (21:00)
--- NOTE | 2018-02-23 23:30 | CON ---
DATE OF CONSULTATION: 02/23/2018 CONSULTING PHYSICIAN: Hospitalist Services. IMPRESSION: Left eye blurred vision of uncertain etiology. PLAN: 1. Continue Coumadin. 2. Refer back to Dr. Krause for ophthalmologic opinion. HISTORY OF PRESENT ILLNESS: Ms. Torres is an 87-year-old woman with the past history of cardiac disease and pacemaker implantation. Last week, she developed diffuse blurred vision in the left eye, there was no associated pain. She is blind in the right eye, secondary to temporal arteritis. She had some pain around the right cheek, but otherwise, had no other focal neurologic symptoms. She came in and had a CT scan of the brain done, which showed some extensive periventricular white matter ischemic changes, but no definitive acute stroke. Her echocardiogram shows an ejection fraction of 50% to 55%. Her INR was in therapeutic range of 3.2. Her cholesterol ratio was 2.6. She reports that the degree of blurring of the vision is a bit better. PAST MEDICAL HISTORY: Otherwise unremarkable. FAMILY HISTORY: Noncontributory. MEDICATIONS: List was reviewed. SOCIAL HISTORY: No tobacco or alcohol use. REVIEW OF SYSTEMS: No complaint of headache, nausea, vomiting, lateralized weakness, numbness, chest pain or shortness of breath. PHYSICAL EXAMINATION: GENERAL: She is a healthy-appearing elderly lady, sitting up in the bed, in no distress. VITAL SIGNS: Stable and she is afebrile. HEENT: Pupils are equal and nonreactive. Conjunctivae are clear. Oropharynx is clear. NECK: No lymphadenopathy. EXTREMITIES: No cyanosis. NEUROLOGIC: She is alert and appropriate. Her speech is fluent and clear. Cranial nerve exam is only notable for the blindness in the right eye and questionably constricted upper field of the left eye. Her motor exam showed equal strength and no fix or drift. Sensation is equal to touch. Gait was not tested. No abnormal movements were seen. DIAGNOSTIC STUDIES: EKG showed paced rhythm. SUMMARY: This is an elderly lady with some diffuse vision loss in the left eye without evidence of an occipital lobe infarct. Given that her symptoms have been present for nearly a week, if they were cerebral, it should have shown on the current imaging, suspect that there is more likely an ocular etiology to it. Job ID: [id number]
--- NOTE | 2018-02-26 11:22 | DIS ---
DATE OF ADMISSION: 02/22/2018 DATE OF DISCHARGE: 02/23/2018 PRIMARY CARE PHYSICIAN: Sophia Mendez DO CONSULTANTS: Siddharth Woodall MD PROCEDURES: 1. The patient had a brain CT, which showed no evidence of acute intracranial abnormality. 2. The patient had a chest x-ray, which showed impression, stable chest. 3. The patient had an echocardiogram, which showed an ejection fraction of 50% to 55%, moderately dilated left atrium, mildly elevated right atrium size. Left ventricular size is normal. Mild aortic stenosis. Mild aortic regurgitation. Moderate tricuspid regurgitation. Pacer wires visualized in right ventricle. The patient did have an MRI scheduled, but was cancelled due to hardware from previous surgeries. DISCHARGE DIAGNOSES: 1. Transient ischemic attack. 2. Hypertension. 3. Chronic anticoagulation. 4. Anxiety and depression. 5. History of giant cell arteritis. REVIEW OF SYSTEMS: The patient was examined on morning of discharge. The patient denied any complaints. All other systems were reviewed and are negative. PHYSICAL EXAMINATION: VITAL SIGNS: Temperature is 98.0, pulse is 80, respirations are 18, blood pressure is 190/88, and pulse ox is 97% on room air. GENERAL: The patient is currently alert, awake. Does not appear in any distress. HEENT: Head is normocephalic and atraumatic. Eyes; pupils are round and reactive to light. Extraocular muscles are intact. The patient is blind in the right eye. ENT; mucous membranes are moist. No oral lesions. NECK: Supple. Range of motion is normal. LUNGS: Clear to auscultation bilaterally. No wheezes or rhonchi. CARDIAC: S1 and S2. No gallops or rubs. The patient does have a pacemaker present to the upper chest. ABDOMEN: Soft, nontender. Bowel sounds are present. BACK: No tenderness. No CVA tenderness. EXTREMITIES: Passive movements to joints are normal. Pulses are equal bilaterally to upper and lower extremities. NEUROLOGIC: Nonfocal. Denied any changes to sensation. Denied any weakness to either extremity. The patient is moving all 4 limbs. SKIN: No rash. No lymphedema. PSYCHIATRIC: Normal affect. HOSPITAL COURSE: This is a very pleasant 87-year-old female, who was brought to the emergency room from the [facility], reports right-sided face pain, which started earlier that day. Reports that she has been having some dizziness that has been constant and ongoing for the last 3 days prior to admission. Reports the dizziness did not change with position. She is currently unable to ambulate after she had a hip fracture this summer. She has hardware in both hips. She denied any nausea, vomiting with the dizziness. She denied any chest pain or shortness of breath. Denied any lower extremity edema. She had a brain CT in the emergency room, findings above. Based on history and current complaint, she was admitted to the stroke unit for further management. She had an echocardiogram, findings as listed above. Dr. Woodall was consulted and recommended that she continue on the Coumadin and go back to Dr. Krause for an Ophthalmology opinion. The patient had some leukocytosis most likely due to her daily prednisone for her history of giant cell arteritis. INR 3.2. Chemistry values were unremarkable. Urine was negative. The patient reports symptoms were abating. Vital signs have remained stable. Discharge plan discussed with Dr. Kelly, who agreed with discharge plan. The patient was discharged back to the [facility]. It was recommended that she followup with Dr. Mendez and Dr. Krause. MEDICATIONS: Home medications continued, which include; 1. Tylenol 650 mg p.o. q.4 hours as needed. 2. Tylenol with Codeine 300 mg-60 mg q.6 hours p.r.n. pain. 3. Calcium with vitamin D 1 tab p.o. b.i.d. 4. Refresh eye drops 1 drop each eye q.i.d. 5. Clonidine 0.1 mg p.o. q.24 hours p.r.n. as needed. 6. Iron 1 capsule p.o. daily. 7. Melatonin 1 mg p.o. at bedtime. p.r.n. 8. Multivitamin 1 tab p.o. daily. 9. Lyrica 25 mg, the patient states that she was prescribed this, but had stopped taking it on her own. 10. Atorvastatin 40 mg p.o. at bedtime was added. 11. Coreg 6.25 mg p.o. b.i.d. 12. Pepcid 20 mg p.o. daily. 13. Lasix 20 mg p.o. daily. 14. Isosorbide 30 mg p.o. daily. 15. Prednisone 5 mg p.o. daily. 16. Zoloft 100 mg p.o. at bedtime. 17. Spironolactone 25 mg p.o. q.a.m. 18. Coumadin 5 mg p.o. daily. ALLERGIES: INCLUDE ASPIRIN, KEFLEX, ERYTHROMYCIN, HYDROXYCHLOROQUINE, PENICILLINS, SULFA, AND TETANUS TOXOID. CONDITION: Stable. DISPOSITION: The patient was discharged back to the [facility]. REFERRAL: Should see Dr. Mendez within the next week. Should see Dr. Krause to have an Ophthalmology consult. Job ID: [id number]
== END 2018-02-23 19:57 ==
LOC: ERS 13:01 → 2SE 20:31
PROVIDERS: ADMIT Internal Medicine; ATTEND Internal Medicine
DX: G45.9 Transient cerebral ischemic attack, unspecified (principal); I13.0 Hypertensive heart and chronic kidney disease with heart failure and stage 1 through stage 4 chronic kidney disease, or unspecified chronic kidney disease; N18.3 Chronic kidney disease, stage 3 (moderate); I50.9 Heart failure, unspecified; D63.1 Anemia in chronic kidney disease; F41.9 Anxiety disorder, unspecified; F32.9 Major depressive disorder, single episode, unspecified; I48.2 Chronic atrial fibrillation; D72.829 Elevated white blood cell count, unspecified; M31.6 Other giant cell arteritis; H54.61 Unqualified visual loss, right eye, normal vision left eye; Z85.6 Personal history of leukemia; Z86.73 Personal history of transient ischemic attack (TIA), and cerebral infarction without residual deficits; Z79.01 Long term (current) use of anticoagulants; Z79.52 Long term (current) use of systemic steroids; Z79.899 Other long term (current) drug therapy; Z88.0 Allergy status to penicillin; Z88.1 Allergy status to other antibiotic agents; Z88.2 Allergy status to sulfonamides; Z88.7 Allergy status to serum and vaccine; Z88.8 Allergy status to other drugs, medicaments and biological substances; Z95.0 Presence of cardiac pacemaker
CPT/HCPCS: 70450; 71045; 80053; 80061; 80069; 81003; 82553; 84484; 85025 ×2; 85610; 85652; 85730; 86140; 93005; 93306; 96361; 96365; 96366; 96372; 97139 ×2; 99285; G0378 ×2; G8978; G8979; G8987; G8988; G8989; 36415; A4353; G9168-GN-CK; G9169-GN-CK; J1650; J3490; J7050

== ENCOUNTER 2019-02-10 06:14 | Day surgery (SDC) | payer MEDICARE ==
[2019-02-09 09:56] VITALS: BMI 24.1
[~2019-02-10 06:14] MED LIST: EPINEPHrine 0.3 MG in Ophthalmic Irrigation Solution 500 ML IRR SCH
[2019-02-10] MEDS ORDERED: Phenylephrine 2.5% Ophth Soln 5 ML BOT ONE (07:14)
[2019-02-10] MEDS ORDERED: Cyclopentolate 1% Opth Drop 2 ML BOT ONE (07:14)
[2019-02-10] MEDS ORDERED: hydrALAZINE 20 MG/ML VIAL ONE (07:51)
[2019-02-10] MEDS ORDERED: PROPOFOL 20 ML ONE (08:11)
[2019-02-10] MEDS ORDERED: Maxitrol 0.1% Opth Oint 3.5 GM TUBE ONE (10:05)
[2019-02-10] MEDS ORDERED: Bupivacaine PF 0.75% SDV 10 ML ONE (10:05)
[2019-02-10] MEDS ORDERED: PROPOFOL 200 MG/20 ML VIAL ONE (10:05)
[2019-02-10] MEDS ORDERED: Indocyanine Green 25 MG/10 ML VIAL ONE (10:05)
[2019-02-10] MEDS ORDERED: Lidocaine 4% PF 5 ML AMP ONE (10:05)
[2019-02-10] MEDS ORDERED: Triamcinolone 40 MG/ML VIAL ONE (10:05)
--- NOTE | 2019-02-10 11:36 | OP ---
DATE OF PROCEDURE: 02/10/2019 PRINCIPAL PREOPERATIVE DIAGNOSIS: Epiretinal membrane, left eye. POSTOPERATIVE DIAGNOSIS: Epiretinal membrane, left eye. PROCEDURES PERFORMED: 1. A 25-gauge pars plana vitrectomy, left eye. 2. Epiretinal membrane/internal limiting membrane removal, left eye. ESTIMATED BLOOD LOSS: None. SPECIMENS REMOVED: None. COMPLICATIONS: None. ANESTHESIA: MAC with retrobulbar block. SUMMARY OF OPERATION: The patient was identified in the preop holding area, where the correct eye being the left eye was marked for surgery. The patient was taken to the operating room, where a MAC anesthesia was induced. A retrobulbar block was administered to the left eye. The block consisted of 1:1 ratio of 4% lidocaine 0.75% Marcaine. Total of 5 mL was administered. The left eye was then prepped and draped in the usual sterile ophthalmic fashion for surgery. A wire lid speculum was placed. A standard 25-gauge pars plana vitrectomy platform was fashioned with trocars placed approximately 3.5 mm from the limbus. The infusion was noted to be within the vitreous cavity prior to being turned on to infusion pressure of 30 mmHg. The light pipe Micro vitrector was introduced in the eye under visualization of BIOM viewing system. A careful core and peripheral shave vitrectomy were performed followed by injection of Kenalog. Following vitrectomy, ICG dye was used to stain the internal limiting membrane. Using the Samson ILM forceps, an epiretinal membrane/internal limiting membrane complex removal was performed in a circumferential fashion about the fovea. The peel extended approximately 1.5 disk diameters in radius from the fovea circumferentially. Following peeling, the Micro vitrector was reintroduced in the eye to remove the residual vitreous debris. A 360 degree scleral depressed exam of the periphery revealed no defects. The cannulas were sequentially removed and all sclerotomies were noted to be watertight. The wire lid speculum was removed followed by application of TobraDex ophthalmic ointment and a light patch and shield. The patient tolerated the procedure well and taken to the outpatient recovery in good condition. Job ID: [id number]
== END 2019-02-10 10:19 | disposition home or self-care (01) ==
LOC: SDC 06:14
PROVIDERS: ATTEND Ophthalmology Retina Specialist
PROC: 08T53ZZ Resection of Left Vitreous, Percutaneous Approach (ICD-10-PCS; principal; 2019-02-10)
PROC: 08NF3ZZ Release Left Retina, Percutaneous Approach (ICD-10-PCS; 2019-02-10)
DX: H35.372 Puckering of macula, left eye (principal); Z88.0 Allergy status to penicillin; Z88.1 Allergy status to other antibiotic agents; Z88.2 Allergy status to sulfonamides; Z88.7 Allergy status to serum and vaccine; Z88.8 Allergy status to other drugs, medicaments and biological substances
CPT/HCPCS: J0171; J0360; J2001; J2704; J3301; J3490

== ENCOUNTER 2019-04-04 01:08 | Emergency (ER) | payer MEDICARE ==
[2019-04-04 01:38] LABS: Hemoglobin 15.4 g/dL (12.0-16.0); Mean Corpuscular Hemoglobin 32.9 pg (27.0-31.0); Mean Corpuscular Volume 99.9 fL (78.0-98.0); Mean Platelet Volume 7.3 fL (7.4-10.4); Platelet Count 191 thou/uL (130-400); RBC Distribution Width 12.8 % (11.5-14.5); Red Blood Cell (RBC) Count 4.67 mill/uL (4.20-5.40); White Blood Cell (WBC) Count 19.1 thou/uL (4.8-10.8)
[2019-04-04 01:59] LABS: ALT (SGPT) 18 U/L (8-55); AST (SGOT) 20 U/L (5-34); Albumin 4.1 g/dL (3.4-4.8); Alkaline Phosphatase 60 U/L (40-110); Anion Gap 15 mmol/L (10-20); BUN (Urea Nitrogen) 21 mg/dL (9.8-20.1); Bilirubin, Total 0.6 mg/dL (0.2-1.2); Calc. Creatinine Clearance 0 mL/min (70-130); Calcium 8.9 mg/dL (7.8-10.44); Carbon Dioxide 25 mmol/L (23-31); Chloride 98 mmol/L (98-107); Estimated GFR-MDRD 38; Globulin 1.9 g/dL (2.4-3.5); Glucose 98 mg/dL (83-110); Lymphocytes 46 % (21-51); MDiff Complete? YES; Monocytes 1 % (0-10); Neutrophil 44 % (42-75); Platelet Morphology Comment Appears Adequate; Potassium 4.1 mmol/L (3.5-5.1); RBC Morphology Normal; Reactive Lymphocytes 9 % (0-10); Sodium 134 mmol/L (136-145)
[2019-04-04] MEDS ORDERED: Orphenadrine Citrate 60 MG/2 ML VIAL IM SCH (02:00)
[2019-04-04 02:21] LABS: Bilirubin Negative (Negative); Blood, Urine Negative (Negative); Clarity Clear (Clear); Glucose, Urine (Dipstick) Normal (Negative); Leukocyte Negative Leu/uL (Negative); Nitrite Negative (Negative); Protein, Urine (Dipstick) Negative (Neg-Trace); Urobilinogen Normal mg/dL (Less than 2)
[2019-04-04] MEDS ORDERED: Ondansetron PF 4 MG/2 ML Vial ONE (02:40)
[2019-04-04] MEDS ORDERED: Ondansetron ODT 4 MG TAB ONE (04:44)
--- NOTE | 2019-04-04 08:13 | CT ---
PRELIMINARY REPORT/[facility]/EMERGENCY AFTER HOURS PROCEDURE: EXAM: CT Abdomen and Pelvis with Intravenous Contrast CLINICAL HISTORY: ER 7.. Bilateral flank pain; recently dx with UTI. Surgical hx of L hip replacement, colon resection. TECHNIQUE: Axial computed tomography images of the abdomen and pelvis with intravenous contrast. CONTRAST: With; ISOVUE 370, 60 ML COMPARISON: None provided. FINDINGS: LUNG BASES: The cardiac size is slightly enlarged. LIVER: There is a 1.7 cm low-density lesion in the right hepatic lobe containing a calcification. GALLBLADDER AND BILE DUCTS: Unremarkable. No calcified stone. No ductal dilation. PANCREAS: Unremarkable. SPLEEN: There is a focal wedge-shaped low density region in the spleen, possible infarct. ADRENAL GLANDS: Unremarkable. KIDNEYS, URETERS, AND BLADDER: Unremarkable. No hydronephrosis or nephrolithiasis. No ureteral or lavinia dder calculi. STOMACH AND BOWEL: Large amount of fecal material noted throughout the colon. APPENDIX: No CT evidence for appendicitis. PERITONEUM: No free fluid. No free air. LYMPH NODES: No lymphadenopathy. REPRODUCTIVE: Unremarkable as visualized. VASCULATURE: No aortic aneurysm. BONES: There is a mild to moderate compression fracture of T11 and L4 vertebral body with about 20-30 % loss of vertebral height. ABDOMINAL WALL AND SOFT TISSUES: Unremarkable. MISCELLANEOUS: Large amount of beam hardening artifact in the pelvic region from the bilateral hip pr ostheses. IMPRESSION: 1. The cardiac size is slightly enlarged. 2. There is a focal wedge-shaped low density region in the spleen, possible infarct. 3. The There is a mild to moderate compression fracture of T11 and L4 vertebral body with about 20-3 0% loss of vertebral height. ELECTRONICALLY SIGNED BY: Ghazal Ko MD Apr 04, 2019 3:51:18 AM AGRICULTURAL RESEARCH TECHNICIAN This report is intended for review by the ordering physician only, in accordance of law. If you recei ve this report in error, please call [facility] at [phone]. FINAL REPORT CT OF ABDOMEN AND PELVIS: DATE: 04/04/2019. COMPARISON: None. HISTORY: Bilateral flank pain. FINDINGS: The imaged lung bases are unremarkable. The heart is enlarged. Incompletely imaged transvenous paci ng device present. No free intraperitoneal air. There is a wedge-shaped area of hypodensity within the spleen measuring 3-4 cm suggesting a splenic infarction. There is a cyst with a peripheral calci fication within the superior aspect of the right lobe of the liver. Gallbladder, spleen, adrenal gla nds, and kidneys demonstrate no acute findings. Bilateral renal cortical thinning noted. Bilateral hip prostheses noted with associated streak artifact limiting detailed assessment of the pelvis. No evidence for bowel inflammatory change or bowel obstruction. There is scattered atherosclerotic calc ification of the abdominal aorta and its branches. No abdominal or pelvic lymphadenopathy is noted. Age-indeterminate mild superior end plate fracture of T11 noted. There is an age-indeterminate anter ior wedge compression fracture of T4 as well. No worrisome lytic or blastic bone lesion. IMPRESSION: Age-indeterminate T11 and L4 fractures. Findings suggesting splenic infarction. POS: [facility]
== END 2019-04-04 04:46 ==
LOC: ERS 01:08
DX: M62.830 Muscle spasm of back (principal); M48.55XD Collapsed vertebra, not elsewhere classified, thoracolumbar region, subsequent encounter for fracture with routine healing; I25.10 Atherosclerotic heart disease of native coronary artery without angina pectoris; F41.9 Anxiety disorder, unspecified; F32.9 Major depressive disorder, single episode, unspecified; I48.91 Unspecified atrial fibrillation; I49.9 Cardiac arrhythmia, unspecified; I13.0 Hypertensive heart and chronic kidney disease with heart failure and stage 1 through stage 4 chronic kidney disease, or unspecified chronic kidney disease; N18.3 Chronic kidney disease, stage 3 (moderate); Z86.73 Personal history of transient ischemic attack (TIA), and cerebral infarction without residual deficits; Z79.899 Other long term (current) drug therapy; Z79.01 Long term (current) use of anticoagulants
CPT/HCPCS: 36415; 74177; 80053; 81003; 85025; 96372; J2360; J2405; Q0162

== ENCOUNTER 2019-04-06 14:38 | Emergency (ER) | payer MEDICARE ==
[2019-04-06] MEDS ORDERED: cloNIDine 0.1 MG TAB ONE (15:21)
[2019-04-06] MEDS ORDERED: Ondansetron PF 4 MG/2 ML Vial ONE (15:21)
[2019-04-06] MEDS ORDERED: Morphine 4 MG/ML VIAL ONE (15:21)
[2019-04-06 15:26] LABS: Hemoglobin 15.9 g/dL (12.0-16.0); Mean Corpuscular HGB CONC 32.8 g/dL (32.0-36.0); Mean Corpuscular Hemoglobin 32.1 pg (27.0-31.0); Mean Corpuscular Volume 98.1 fL (78.0-98.0); Platelet Count 200 thou/uL (130-400); RBC Distribution Width 12.6 % (11.5-14.5); Red Blood Cell (RBC) Count 4.95 mill/uL (4.20-5.40); White Blood Cell (WBC) Count 16.1 thou/uL (4.8-10.8)
[2019-04-06 15:29] LABS: INR-International Normal Ratio 3.2; PTT 39.3 SEC (22.9-36.1); Prothrombin Time 32.3 SEC (12.0-14.7)
[2019-04-06 15:39] LABS: Band 1 % (5-11); Lymphocytes 32 % (21-51); MDiff Complete? YES; Monocytes 2 % (0-10); Neutrophil 65 % (42-75); Platelet Morphology Comment Appears Adequate; RBC Morphology Normal
[2019-04-06 15:45] LABS: ALT (SGPT) 14 U/L (8-55); AST (SGOT) 22 U/L (5-34); Alkaline Phosphatase 65 U/L (40-110); Anion Gap 13 mmol/L (10-20); BUN (Urea Nitrogen) 31 mg/dL (9.8-20.1); Bilirubin, Total 0.9 mg/dL (0.2-1.2); Calc. Creatinine Clearance 0 mL/min (70-130); Calcium 9.2 mg/dL (7.8-10.44); Carbon Dioxide 31 mmol/L (23-31); Chloride 94 mmol/L (98-107); Estimated GFR-MDRD 29; Globulin 2.1 g/dL (2.4-3.5); Glucose 96 mg/dL (83-110); Potassium 4.2 mmol/L (3.5-5.1); Protein, Total 6.1 g/dL (6.0-8.3); Sodium 134 mmol/L (136-145)
--- NOTE | 2019-04-06 16:21 | CT ---
CT Thoracic Spine WO Con HISTORY: Thoracic back pain COMPARISON: None. FINDINGS: There is an acute compression fracture involving the T11 vertebral body with about 25% loss of heigh t. No retropulsion is seen. No subluxation is identified. Degenerative changes are present in thoracic spine. There is a focal 2.7 cm groundglass masslike opacity in the left upper lobe. Possibility of malignanc y cannot be excluded. A PET scan would be helpful after course of antibiotics.
--- NOTE | 2019-04-06 16:21 | CT ---
Exam: The lumbar spine CT without contrast HISTORY: Lumbar spine pain. Symptoms x4 days. Patient fell a couple weeks ago Comparison: None FINDINGS: Diffuse bony mineralization. 5 lumbar type vertebra. Lumbar spine vertebral body height is maintained from L1 through L3 as well as at L5. There is moderate loss of vertebral body height at L4 with retropulsion. There is sclerosis of the endplates. Chronic fracture is suspected. Clinical correlatio n is essential. No significant paraspinal hematoma. Incompletely evaluated, likely acute fracture at T11. Axial images demonstrate small amount of parasp inal hematoma. Additionally, there is cortical irregularity involving the superior endplate of T11. Heart is enlarged. Lung parenchymal changes are presumed be chronic No paraspinal mass. No lymphadenopathy. Visualized solid organs are unremarkable Visualized sacrum is intact. Sacroiliac joints are patent and symmetric. Sacral alar preserved. Extensive vascular calcifications. Atrophic uterus Limited evaluation the contents of the central spinal canal and neural foramina due to technique T11-T12 and T12-L1: No high-grade central canal stenosis or high-grade neural foraminal narrowing L1-L2: Vacuum disc phenomenon. Broad-based disc bulge, ligament flavum thickening and facet hypertrop hy result in mild to moderate central canal stenosis. Moderate to severe right and moderate left neural foraminal narrowing L2-L3: Vacuum disc phenomenon. Broad-based disc bulge, ligament flavum thickening and facet hypertrop hy result in moderate central canal stenosis. Moderate bilateral neural foraminal narrowing L3-L4: Broad-based disc bulge, ligament flavum thickening and facet hypertrophy result in mild to mod erate central canal stenosis. Mild to moderate right and moderate left neural foraminal narrowing L4-L5: Broad-based disc bulge, ligament flavum thickening and facet hypertrophy are present. There is a central/right subarticular as well as a left subareolar disc bulge. Overall there is moderate central canal stenosis. Mild to moderate bilateral neural foraminal narrowing. L5-S1: No significant central canal stenosis. Neural foramina are patent IMPRESSION: 1. Probable acute T11 compression fracture. 2. Probable remote L4 compression fracture. 3. Diffuse bone demineralization. 4. Degenerative disc disease of the lumbar spine as described above. Transcribed Date/Time: 04/06/2019 4:32 PM
[2019-04-06 17:34] LABS: Bacteria/HPF None Seen HPF (None Seen); Bilirubin Negative (Negative); Blood, Urine Trace (Negative); Clarity Clear (Clear); Glucose, Urine (Dipstick) Normal (Negative); Leukocyte Negative Leu/uL (Negative); Mucous/LPF Rare LPF (<2+); Nitrite Negative (Negative); Protein, Urine (Dipstick) 10 mg/dL (Neg-Trace); Squamous Epithelial None Seen HPF (0-3); Urobilinogen Normal mg/dL (Less than 2); WBC/HPF 0-3 HPF (0-3)
[2019-04-06] MEDS ORDERED: Dexamethasone 4 mg/ml Vial ONE (17:52)
== END 2019-04-06 18:11 | disposition home or self-care (01) ==
LOC: ERS 14:38
DX: S22.089A Unspecified fracture of T11-T12 vertebra, initial encounter for closed fracture (principal); S32.049A Unspecified fracture of fourth lumbar vertebra, initial encounter for closed fracture; M51.36 Other intervertebral disc degeneration, lumbar region; I48.91 Unspecified atrial fibrillation; I11.0 Hypertensive heart disease with heart failure; I50.9 Heart failure, unspecified; I25.10 Atherosclerotic heart disease of native coronary artery without angina pectoris; F41.9 Anxiety disorder, unspecified; F32.9 Major depressive disorder, single episode, unspecified; Z86.73 Personal history of transient ischemic attack (TIA), and cerebral infarction without residual deficits; Z79.899 Other long term (current) drug therapy; Z79.01 Long term (current) use of anticoagulants; X58.XXXA Exposure to other specified factors, initial encounter
CPT/HCPCS: 36415; 51702; 72128; 72131; 80053; 81003; 81015; 85025; 85610; 85730; 87086; 96374; 96375; J1100; J2270; J2405

== ENCOUNTER 2019-05-10 09:06 | Emergency (ER) | payer MEDICARE ==
[2019-05-10 10:32] LABS: Hemoglobin 13.6 g/dL (12.0-16.0); Mean Corpuscular HGB CONC 32.7 g/dL (32.0-36.0); Mean Corpuscular Hemoglobin 32.3 pg (27.0-31.0); Mean Corpuscular Volume 98.8 fL (78.0-98.0); Mean Platelet Volume 7.3 fL (7.4-10.4); Platelet Count 194 thou/uL (130-400); RBC Distribution Width 13.2 % (11.5-14.5); Red Blood Cell (RBC) Count 4.19 mill/uL (4.20-5.40); White Blood Cell (WBC) Count 13.5 thou/uL (4.8-10.8)
[2019-05-10 10:33] LABS: INR-International Normal Ratio 1.8; Prothrombin Time 21.1 SEC (12.0-14.7)
[2019-05-10 10:39] LABS: ALT (SGPT) 14 U/L (8-55); AST (SGOT) 16 U/L (5-34); Albumin 3.7 g/dL (3.4-4.8); Alkaline Phosphatase 54 U/L (40-110); Anion Gap 10 mmol/L (10-20); BUN (Urea Nitrogen) 17 mg/dL (9.8-20.1); Bilirubin, Total 0.7 mg/dL (0.2-1.2); Calc. Creatinine Clearance 0 mL/min (70-130); Carbon Dioxide 32 mmol/L (23-31); Chloride 100 mmol/L (98-107); Estimated GFR-MDRD 41; Globulin 1.7 g/dL (2.4-3.5); Glucose 83 mg/dL (83-110); Potassium 3.7 mmol/L (3.5-5.1); Protein, Total 5.4 g/dL (6.0-8.3); Sodium 138 mmol/L (136-145)
--- NOTE | 2019-05-10 10:43 | CT ---
HEAD CT WITHOUT CONTRAST: Date: 05/10/2019 HISTORY: Patient fell out of bed. Unwitnessed fall. FINDINGS: No parenchymal hemorrhage. No extra-axial hematoma. No midline shift. Basilar cisterns are patent. Ag e-appropriate atrophy. Remote lacunar infarct in the posterior right caudate nucleus. Confluent white matter hypodensities due to chronic small vessel ischemic change. Calvarium is intact. Adequate aeration of the sinuses and mastoid air cells. IMPRESSION: No intracranial post-traumatic sequelae. POS: [facility]
[2019-05-10 10:47] LABS: Band 2 % (5-11); Lymphocytes 50 % (21-51); MDiff Complete? YES; Monocytes 4 % (0-10); Neutrophil 43 % (42-75); RBC Morphology Normal; Reactive Lymphocytes 1 % (0-10)
--- NOTE | 2019-05-10 10:48 | CT ---
CT CERVICAL SPINE PERFORMED WITHOUT CONTRAST ENHANCEMENT: Date: 05/10/2019 HISTORY: Neck pain status post fall out of bed. FINDINGS: The vertebral bodies maintain normal height. There is mild disc narrowing at C3-4 and marked disc ioana rowing at C4-5 with and anterolisthesis of approximately 3-4 mm. There is retrolisthesis of approxima tely 3.0 mm of C5 on C6 with marked degenerative changes. There is also disc narrowing at the C6-7 le carlie. There are degenerative facet changes; however, the facets are in normal alignment. There is a mild to moderate degree of canal stenosis at C5-6 with bilateral foraminal stenosis. There is also some mild bilateral foraminal narrowing at C6-7 level. There is no CT evidence of fracture. Lung apices are clear. Carotid bulb calcifications are incidentally noted. IMPRESSION: No CT evidence of fracture of the cervical spine. POS: [facility]
[2019-05-10] MEDS ORDERED: Fentanyl 100 MCG/2 ML VIAL ONE (11:06)
--- NOTE | 2019-05-10 11:57 | RAD ---
RIGHT HIP 2 VIEWS: Date: 05/10/2019 HISTORY: Injury, fall out of bed. FINDINGS: Bony demineralization. Total right hip replacement changes. Stable from 11/15/2017. IMPRESSION: No dislocation or periprosthetic fracture. Bony demineralization. Stable from prior study of 11/16/19 18. POS: [facility]
--- NOTE | 2019-05-10 11:58 | RAD ---
CHEST 1 VIEW: Date: 05/10/2019 HISTORY: Injury from unwitnessed fall out of bed. COMPARISON: 11/11/2018. FINDINGS: Left ICD. Minimal cardiomegaly. Stable appearing increased linear and interstitial markings bilateral ly, particularly in the bases. No confluent pneumonia, overt edema, or pleural effusion. IMPRESSION: Stable cardiomegaly and increased markings in the bases. Bony demineralization. No pneumothorax, pleu ral effusion, or other acute process. POS: [facility]
== END 2019-05-10 11:49 | disposition home or self-care (01) ==
LOC: ERS 09:06
DX: M25.551 Pain in right hip (principal); R22.0 Localized swelling, mass and lump, head; I25.10 Atherosclerotic heart disease of native coronary artery without angina pectoris; I12.9 Hypertensive chronic kidney disease with stage 1 through stage 4 chronic kidney disease, or unspecified chronic kidney disease; I50.9 Heart failure, unspecified; N18.3 Chronic kidney disease, stage 3 (moderate); F03.90 Unspecified dementia, unspecified severity, without behavioral disturbance, psychotic disturbance, mood disturbance, and anxiety; I48.91 Unspecified atrial fibrillation; F32.9 Major depressive disorder, single episode, unspecified; F41.9 Anxiety disorder, unspecified; Z86.73 Personal history of transient ischemic attack (TIA), and cerebral infarction without residual deficits; Z79.01 Long term (current) use of anticoagulants; Z79.899 Other long term (current) drug therapy; W06.XXXA Fall from bed, initial encounter
CPT/HCPCS: 36415; 70450; 71045; 72125; 80053; 85025; 85610; 93005; 96374; J3010